=== PATIENT | male | born 1965 | race Caucasian/White ===

== ENCOUNTER 2022-08-28 04:54 | Emergency (ER) | payer BC ==
[2022-08-28] MEDS ORDERED: Tranexamic Acid 1,000 MG/10 ML Vial TOP ONE (05:00)
[2022-08-28 05:05] VITALS: BP 138/84; PULSE 66
[2022-08-28] MEDS ORDERED: Tranexamic Acid 1,000 MG in Sodium Chloride 0.9% 100 ML IV ONE (05:18)
[2022-08-28] MEDS ORDERED: Benzocaine 20% Topical Spray UD MUCMEM ONE (05:35)
[2022-08-28 06:18] LABS: PTT,PARTIAL THROMBOPLSTIN TIME 23.8 SEC (20.0-30.0)
== END 2022-08-28 06:30 | disposition home or self-care (01) ==
LOC: CC.ED 04:54 → SUPCPDRO 04:54 → CC.ED 06:30
DX: R04.0 Epistaxis (principal); E78.00 Pure hypercholesterolemia, unspecified; I10 Essential (primary) hypertension; E11.9 Type 2 diabetes mellitus without complications; E03.9 Hypothyroidism, unspecified; Z91.018 Allergy to other foods; Z88.7 Allergy status to serum and vaccine; Z79.899 Other long term (current) drug therapy
CPT/HCPCS: 30901; 30905; 36415; 85014; 85018; 85610; 85730; 99283; A9270-GY; J3490; J7050

== ENCOUNTER → 2023-06-28 | Day surgery (SDC) | payer BC ==
[~2023-06-28] MED LIST: Flumazenil 0.1 MG/ML 10 ML MDV ONE; Ketamine 200 MG/20 ML MDV ONE; Lactated Ringers 1,000 ML IV SCH; Lidocaine 2% 20 ML MDV ONE; Midazolam 1 MG/ML 2 ML SDV ONE; Propofol 200 MG/20 ML SDV ONE; fentaNYL 50 MCG/ML SDV ONE
[2023-06-28 13:39] VITALS: BP 133/84; PULSE 50
== END ==
LOC: CC.SDS 11:57
PROVIDERS: ATTEND Family Medicine
DX: K29.00 Acute gastritis without bleeding (principal); K29.80 Duodenitis without bleeding; K21.9 Gastro-esophageal reflux disease without esophagitis; I10 Essential (primary) hypertension; E11.9 Type 2 diabetes mellitus without complications; E03.9 Hypothyroidism, unspecified; E78.5 Hyperlipidemia, unspecified; Z79.82 Long term (current) use of aspirin; Z79.84 Long term (current) use of oral hypoglycemic drugs; Z79.890 Hormone replacement therapy; Z79.899 Other long term (current) drug therapy
CPT/HCPCS: 00731; 87081; J2250; J2704; J3010; J3490; J7120

== ENCOUNTER 2023-12-11 06:45 | Day surgery (SDC) | payer BC ==
[2023-12-11] MEDS: Lactated Ringers 1,000 ML IV SCH (07:03)
[2023-12-11] MEDS ORDERED: fentaNYL 50 MCG/ML SDV ONE (07:25)
[2023-12-11] MEDS ORDERED: Ketamine 200 MG/20 ML MDV ONE (07:25)
[2023-12-11 08:36] VITALS: BP 120/71; PULSE 51
== END 2023-12-11 08:48 | disposition home or self-care (01) ==
LOC: CC.SDS 06:45
PROVIDERS: ATTEND Family Medicine
DX: Z12.11 Encounter for screening for malignant neoplasm of colon (principal); D12.2 Benign neoplasm of ascending colon; D12.5 Benign neoplasm of sigmoid colon; I10 Essential (primary) hypertension; E11.9 Type 2 diabetes mellitus without complications; I25.10 Atherosclerotic heart disease of native coronary artery without angina pectoris; K21.9 Gastro-esophageal reflux disease without esophagitis; E78.5 Hyperlipidemia, unspecified; E03.9 Hypothyroidism, unspecified; Z79.890 Hormone replacement therapy; Z79.84 Long term (current) use of oral hypoglycemic drugs; Z79.82 Long term (current) use of aspirin; Z79.899 Other long term (current) drug therapy; Z86.010 Personal history of colon polyps
CPT/HCPCS: 00811; J3010; J3490; J7120